=== PATIENT | female | born 1985 | race Caucasian/White ===

== ENCOUNTER → 2020-04-25 16:17 | Outpatient (CLI) | payer OTHER, SELFPAY ==
--- NOTE | ~2020-04-25 | XR_ITS ---
XR foot RT 2V DATE: 04/25/2020 17:21 INDICATION: Rheumatoid arthritis TECHNIQUE: AP and lateral views COMPARISON: None FINDINGS: No fracture or dislocation, periosteal reaction or bone destruction. Joint spaces are pres erved. No erosive changes. IMPRESSION: Negative Reviewed, dictated and finalized at location A. [facility] [employer] IMPRESSION: Negative
== END ==
PROVIDERS: PCP Internal Medicine; Visit Provider Physician Assistant Medical
DX: M05.9 Rheumatoid arthritis with rheumatoid factor, unspecified (principal)
CPT/HCPCS: 73620

== ENCOUNTER → 2021-09-28 09:28 | Outpatient (CLI) | payer OTHER, SELFPAY ==
--- NOTE | ~2021-09-28 | XR_ITS ---
XR cervical spine 4-5V INDICATION: Arthralgias TECHNIQUE: 5 views of the cervical spine including flexion/extension views. FINDINGS: The cervical spine is visualized to the cervicothoracic junction. There is no prevertebral soft tiss ue swelling, listhesis, or loss of vertebral body height. Intervertebral disc spaces are normal. Th e osseous central canal is patent. No displaced cervical spine fractures are identified. No signific ant alteration of alignment with flexion/extension. IMPRESSION: 1. No significant abnormality of the cervical spine. Reviewed, dictated and finalized at location A.
== END ==
PROVIDERS: PCP Internal Medicine; Visit Provider Internal Medicine
DX: M54.2 Cervicalgia (principal)
CPT/HCPCS: 72050

== ENCOUNTER → 2021-10-26 13:29 | Outpatient (CLI) | payer OTHER, SELFPAY ==
--- NOTE | ~2021-10-26 | XR_ITS ---
EXAMINATION: XR chest 2V DATE: 10/26/2021 13:45 INDICATION: Rheumatoid arthritis with positive rheumatoid factor TECHNIQUE: PA and lateral views of the chest were obtained. COMPARISON: Chest radiograph dated 12/08/2009 FINDINGS: The lungs remain clear with no focal airspace opacities, pulmonary edema, pleural effusion or pneumot horax. The cardiomediastinal silhouette is normal. Unchanged minimal chronic anterior wedging of a co uple mid thoracic vertebral bodies. IMPRESSION: 1. No acute cardiopulmonary disease. Reviewed, dictated and finalized at location A.
== END ==
PROVIDERS: PCP Internal Medicine; Visit Provider Internal Medicine
DX: M05.9 Rheumatoid arthritis with rheumatoid factor, unspecified (principal); Z79.899 Other long term (current) drug therapy
CPT/HCPCS: 71046

== ENCOUNTER → 2022-06-24 15:15 | Outpatient (CLI) | payer OTHER, SELFPAY ==
--- NOTE | ~2022-06-24 | XR_ITS ---
EXAMINATION: XR foot RT 2V DATE: 06/24/2022 16:31 INDICATION: Arthralgia. TECHNIQUE: 2 views of right foot were obtained. COMPARISON: Right foot radiographs 04/25/2020 FINDINGS: Bone alignment is normal. No fracture. Joint spaces are normal. IMPRESSION: 1. Normal right foot. Reviewed, dictated and finalized at location A. IMPRESSION: 1. Normal right foot.
--- NOTE | ~2022-06-24 | XR_ITS ---
EXAMINATION: XR foot LT 2V DATE: 06/24/2022 16:31 INDICATION: Arthralgia. TECHNIQUE: 2 views of left foot were obtained. COMPARISON: None. FINDINGS: Bone alignment is normal. No fracture. Joint spaces are normal. IMPRESSION: 1. Normal left foot. Reviewed, dictated and finalized at location A. IMPRESSION: 1. Normal left foot.
== END ==
PROVIDERS: PCP Internal Medicine; Visit Provider Physician Assistant Medical
DX: M05.79 Rheumatoid arthritis with rheumatoid factor of multiple sites without organ or systems involvement (principal)
CPT/HCPCS: 73620